=== PATIENT | male | born 1990 | race African-American/Black ===

== ENCOUNTER 2023-03-20 10:24 | Emergency (ER) | payer MEDICAID ==
[~2023-03-20] VITALS: Ht 180.3 cm; Wt 70.0 kg
[2023-03-20 10:51] VITALS: BP 129/72
== END 2023-03-20 14:52 | disposition left against medical advice (07) ==
LOC: ER 10:24
DX: R11.2 Nausea with vomiting, unspecified (principal); Z90.49 Acquired absence of other specified parts of digestive tract
CPT/HCPCS: 99281